=== PATIENT | female | born 1980 | race Caucasian/White ===

== ENCOUNTER 2019-03-20 21:50 | Emergency (ER) | payer SELFPAY ==
[~2019-03-20] VITALS: Ht 157.5 cm; Wt 64.9 kg
[2019-03-20 22:09] VITALS: BP 168/81
--- NOTE | 2019-03-20 22:13 | NUR ---
PT AMBULATED TO LOBBY. PROVIDING URINE.
--- NOTE | 2019-03-20 22:31 | NUR ---
Lakia patino in [facility] - 03/20/19 at 2233 by LETITIA PT TAKEN TO RAD
--- NOTE | 2019-03-21 00:07 | NUR ---
PT TAKEN TO BED 10
--- NOTE | 2019-03-21 00:09 | NUR ---
Lakia patino in [facility] - 03/21/19 at 0010 by MED[facility] PATIENT AMBULATED TO BED 10 WITH FAMILY
--- NOTE | 2019-03-21 00:22 | NUR ---
Dr. Gandhi examining patient.
[2019-03-21] MEDS ORDERED: IBUPROFEN 400 MG TAB PO ONE (00:40)
[2019-03-21] MEDS ORDERED: ACETAMINOPHEN 325 MG TAB PO ONE (00:40)
--- NOTE | 2019-03-21 01:16 | NUR ---
PT TAKEN TO CT
--- NOTE | 2019-03-21 01:32 | NUR ---
PTS KNEE WAS WRAPPED IN A TONNY BANDAGE AND A ICE ACK WAS APPLIED. PTS PMSC WNL.
[2019-03-21 03:00] VITALS: BP 130/65
--- NOTE | 2019-03-21 03:00 | NUR ---
DISCHARGE INSTRUCTIONS AND CD OF IMMAGES GIVEN TO PT. 11/20 TOLLERABLE PAIN WITH VSS. AMBULATORY WITH STEADY GAIT. INSTRUCTED TO F/U WITH PCP AND WHEN TO RETURN TO ER. PT VERBALLIZED UNDERSTANDING OF DC INSTRUCTIONS. ALL QUESTIONS ANSWERED.
== END 2019-03-21 03:00 | disposition home or self-care (01) ==
LOC: MED 21:50
DX: S83.92XA Sprain of unspecified site of left knee, initial encounter (principal); M25.519 Pain in unspecified shoulder; M54.2 Cervicalgia; V43.52XA Car driver injured in collision with other type car in traffic accident, initial encounter; Y93.89 Activity, other specified; Y92.89 Other specified places as the place of occurrence of the external cause; Y99.8 Other external cause status
CPT/HCPCS: 70490; 73562; 81025; 99284